=== PATIENT | female | born 1965 | race Caucasian/White ===

== ENCOUNTER 2024-04-12 10:47 | Emergency (ER) | payer BC, SELFPAY ==
[2024-04-12 10:55] VITALS: BP 136/96
[2024-04-12 11:10] VITALS: BP 107/75
--- NOTE | 2024-04-12 11:11 | ED.GENMED ---
History of Present Illness
General
Chief Complaint: Chest Pain
Source: patient
Exam Limitations: none
Time Seen by Provider: 04/12/24 11:10
Nursing documentation reviewed up to this point in time: agreed with
History of Present Illness
History of Present Illness:
Patient is a 58-year-old female 6 days ago she had an episode of chest pain after eating grapes. She reports that pressure was across her chest and was intermittent lasting about 2 minutes. This morning however she had additional episode that was
not associated with eating. She felt pain in the right side of her chest and her right shoulder and again was intermittent and lasted several minutes and resolved on its own. Patient is currently asymptomatic. felt mildly short of breath with
episode. All symptoms have resolved.
Patient has a history of high cholesterol not yet on medication. Her family doctor did recommend a calcium score which is not yet scheduled.
She is adopted and is not aware of her family history.
She has no history of DVT PE. She is a non-smoker.
Past History
Past History
ED Past Medical History: None and Other (Bronchitis); Negative Asthma, HTN, Hypercholesterolemia or NIDDM
ED Past Surgical History: None
Social History
Tobacco: Former smoker
Alcohol: None
Drug: None
Personal: Single
Living: alone
Employment: Employed
Review of Systems
Review of Systems
Allergies reviewed?: Yes
All Other Systems: ROS reviewed and negative except as documented in HPI and ROS
Constitutional: Reports no symptoms; Denies fever, fatigue or chills
Cardiac: Reports chest pain (currently resolved )
ABD/GI: Reports no symptoms; Denies abdominal pain, nausea or vomiting
Musculoskeletal: Reports no symptoms
Psychiatric: Reports no symptoms
Phy Exam
General Physical Exam
General Presentation: no apparent distress
General age: appears stated age
General Skin: warm and dry
General Habitus: normal
General Mental: alert
General Hydration: appears well hydrated
Cardiovascular Exam
Cardiovascular Exam: regular rate/rhythm, no murmur and normal peripheral pulses
Pulmonary Exam
Pulmonary Exam: lungs clear and no respiratory distress
Neurological Exam
Neurological Exam: alert and oriented x3
Musculoskeletal Exam
Musculoskeletal Exam: full ROM
Skin Exam
Skin Exam: normal color and warm/dry
Psychiatric Exam
Psychiatric Exam: normal mood/affect
Scores
Heart Score for Chest Pain Patients
STEMI patient?: Not applicable
Course
Orders/Labs/Results
Orders:
Orders
04/12/24 10:49
ECG [Electrocardiogram (*1)] Urgent
Reason for Study: Chest Pain
EKG- Treatment ONCE
04/12/24 11:29
IV Insert/Care/Rem.- Treatment PRN
04/12/24 11:30
Cardiac Monitoring- Treatment ONCE
04/12/24 11:42
Complete Blood Count/With Diff Urgent
Comprehensive Metabolic Panel Urgent
Troponin I Urgent
04/12/24 11:52
Chest [CR Chest - 2 Views ] Urgent
Comment:
Reason For Exam: cp
Abnormal Lab Results
04/12/24
11:42
RBC 3.85 L 10^6/uL
(4.20-5.40)
Hct 36.2 L %
(37.0-47.0)
MCH 32.7 H pg
(27.0-31.0)
04/12/24 11:42
04/12/24 11:42
Vital Signs
Initial and Last Documented VS:
Initial Vital Signs
Temp Pulse Resp BP Pulse Ox
98.4 F 74 16 136/96 98
04/12/24 10:55 04/12/24 10:55 04/12/24 10:55 04/12/24 10:55 04/12/24 10:55
Last Documented Vital Signs
Temp Pulse Resp BP Pulse Ox
98.4 F 65 21 107/75 98
04/12/24 10:55 04/12/24 13:31 04/12/24 13:31 04/12/24 11:10 04/12/24 12:00
Doctor Of Pharmacy consulted with Physician
Name of Physician Consulted: [place]
MDM/Problems Addressed
Differential Diagnosis Includes:
not limited to: ACS musculoskeletal chest pain
MDM/Problems Addressed:
Patient had a brief episode of chest pain 6 days ago and again today which is what brought her to the ER. It lasted about 2 minutes for each time. She presented asymptomatic and has remained asymptomatic here in the ER she is in no acute distress
and nontoxic nontachycardic nontachypneic nonhypoxic and well-appearing. Her cardiac enzymes and labs unremarkable no acute findings on EKG. Symptoms are consistent with PE DVT. Will DC with chest pain hotline for
*Radiology
Radiology exam reviewed: radiology read reviewed
*Pulse Oximetry
Patient hypoxic: no
*EKG
Interpreted by ED Provider?: Yes
Heart Rate: 70
Rate: normal
Rhythm: sinus
Ischemia: non-specific ST changes
*Critical Care Note
Total Time (30-74mins, 75-104mins- exclusive of procedures): Not Applicable
ED Attending Note
-
Portions of this chart may have been created with voice recognition software.� Occasional wrong word or��sound alike� substitutions may have occurred due to the inherent limitations of voice recognition software.
Discharge Plan
Departure
Patient Disposition: Home (Routine Discharge)
Date of Disposition: 04/12/24
Time of Disposition: 13:57
Patient with high blood pressure during this ER visit?: Yes
Condition: Fair
Covid-19: Not Applicable
Discharge Problem:
Chest pain
Instructions: Chest Pain DCA Follow Up
Prescriptions:
No Action
dexamethasone [Decadron] 6 MG tablet
6 mg PO DAILY Qty: 5 0RF
dextromethorphan-guaifenesin 10 ML syrup
10 ml PO Q4HPRN PRN (Reason: Cough) Qty: 1 0RF
Referrals:
Rebeca Cunningham NP [Family Provider] -
Enrique Reinoso MD [Active] -
Activity Restrictions/Additional Instructions:
As discussed , follow-up with cardiology. You were placed on the cardiology hotline which means you should receive a call from the [facility] office in the next several days. If you do not please call them to schedule an appointment. ReTurn
if any worsening of symptoms.
Interventions
Interventions:
*Risk Screen - Suicide Last Done: 04/12/24 10:55
*General Assessment Last Done: 04/12/24 11:12
*Neglect/Abuse Screening Last Done: 04/12/24 10:55
ED- Fall Risk Assessment Last Done: 04/12/24 11:19
*ED COVID-19 Vaccine History Last Done: 04/12/24 11:12
ED- Cardiac Assessment Last Done: 04/12/24 11:12
Discharge Date and Time
Print Language: CZECH
[2024-04-12 11:52] LABS: % Basophils 0.4 % (0-2); % Eosinophils 2.7 % (0-6); % Immature Granulocytes 0.2 % (0-0.5); % Lymphocytes 38.1 % (20.5-51.1); % Monocytes 8.3 % (1.7-9.3); % Neutrophils 50.3 % (42.2-75.2); Absolute Eosinophils 0.1 10^3/uL (0-0.7); Absolute Lymphocytes 1.8 10^3/uL (1.2-3.4); Absolute Monocytes 0.4 10^3/uL (0.1-0.6); Absolute Neutrophils 2.4 10^3/uL (1.4-6.5); Hematocrit 36.2 % (37.0-47.0); Hemoglobin 12.6 g/dL (12.0-16.0); Mean Corp Hgb Conc. 34.8 g/dL (33.0-37.0); Mean Corpuscular Hgb 32.7 pg (27.0-31.0); Mean Platelet Volume 9.7 fL (7.4-10.4); Nucleated Red Blood Cells % 0 %; Platelet Count 258 10^3/uL (130-400); Red Blood Cell Count 3.85 10^6/uL (4.20-5.40); Red Cell Dist. Width 13.2 % (11.5-14.5); White Blood Cell Count 4.8 10^3/uL (4.8-10.8)
[2024-04-12 12:02] LABS: ALT (SGPT) 26 U/L (0-35); AST (SGOT) 29 U/L (14-36); Albumin 4.5 g/dl (3.5-5.0); Alkaline Phosphatase 66 U/L (38-126); Blood Urea Nitrogen 10 mg/dl (7-17); Calcium 9.2 mg/dl (8.4-10.2); Carbon Dioxide 25 mmol/L (22-30); Chloride 102 mmol/L (98-107); Glucose 99 mg/dl (70-99); Potassium 4.4 mmol/L (3.5-5.1); Sodium 139 mmol/L (135-145); Total Bilirubin 0.3 mg/dl (0.2-1.3); Total Protein 6.9 g/dl (6.3-8.2); eGFR > 60.00
[2024-04-12 12:14] LABS: Troponin I < 0.012 ng/ml
== END 2024-04-12 14:00 | disposition home or self-care (01) ==
LOC: EMR 10:47
PROVIDERS: Nurse Practitioner; EMERGENCY PHYSICIAN Student in an Organized Health Care Education/Training Program; FAMILY PHYSICIAN Nurse Practitioner Family
DX: R07.9 Chest pain, unspecified (principal); Z87.891 Personal history of nicotine dependence
CPT/HCPCS: 99285; 71046; 80053; 84484; 85025; 93005

== ENCOUNTER → 2024-04-24 15:47 | Outpatient (REF) | payer SELFPAY | LOC: RAD 15:47 | PROVIDERS: ATTENDING PHYSICIAN Nurse Practitioner Family | DX: E78.2 Mixed hyperlipidemia (principal) | CPT/HCPCS: 75571 ==

== ENCOUNTER → 2025-02-25 13:23 | Outpatient (REF) | payer BC, SELFPAY | LOC: WDC 13:23 | PROVIDERS: ATTENDING PHYSICIAN Nurse Practitioner Family | DX: Z12.31 Encounter for screening mammogram for malignant neoplasm of breast (principal) | CPT/HCPCS: 77063; 77067 ==

== ENCOUNTER → 2025-06-09 14:35 | Outpatient (REF) | payer BC, SELFPAY | LOC: RAD 14:35 | PROVIDERS: ATTENDING PHYSICIAN Nurse Practitioner Family | DX: M25.551 Pain in right hip (principal); M25.571 Pain in right ankle and joints of right foot | CPT/HCPCS: 73502; 73610 ==